=== PATIENT | female | born 1960 | race Caucasian/White ===

== ENCOUNTER 2024-12-14 19:48 | Emergency (ER) | payer BC ==
[2024-12-14 20:53] LABS: BASOPHILS ABSOLUTE AUTO 0.1 K/mm3 (0.0-0.2); BASOPHILS PERCENT AUTO 0.6 % (0.0-1.0); EOSINOPHILS ABSOLUTE AUTO 0.4 K/mm3 (0.0-0.4); EOSINOPHILS PERCENT AUTO 4.3 % (0.0-6.0); IMMATURE GRAN ABSOLUTE AUTO 0.03 K/mm3 (0.00-0.05); IMMATURE GRAN PERCENT AUTO 0.3 % (0.0-0.4); LYMPHOCYTES ABSOLUTE AUTO 2.5 K/mm3 (1.0-4.8); LYMPHOCYTES PERCENT AUTO 25.5 % (24.0-44.0); MEAN PLATELET VOLUME 8.4 fl (9.4-12.3); MONOCYTES ABSOLUTE AUTO 0.7 K/mm3 (0.0-0.8); MONOCYTES PERCENT AUTO 7.5 % (0.0-8.0); NEUTROPHILS ABSOLUTE AUTO 6.0 K/mm3 (1.8-7.7); NEUTROPHILS PERCENT AUTO 61.8 % (41.0-71.0); NRBC ABSOLUTE 0.00 (0.00-0.02); NRBC PERCENT 0.0 % (0.0-0.2); PLATELET COUNT,PLT 384 K/mm3 (150-400); RED BLOOD CELL COUNT 4.27 M/mm3 (4.10-5.30); WHITE BLOOD CELL COUNT,WBC 9.68 K/mm3 (3.9-11.3)
== END 2024-12-14 21:40 | disposition home or self-care (01) ==
LOC: JD.ED 19:48
DX: L03.114 Cellulitis of left upper limb (principal)
CPT/HCPCS: 36415; 85025; 86140; 99283